=== PATIENT | female | born 1945 | race Caucasian/White ===

== ENCOUNTER → 2016-12-23 | Outpatient (CLI) | payer MEDICARE, BC ==
--- NOTE | 2016-12-23 09:00 | REPMRS ---
Patient History The patient states she had a clinical breast exam in August 2016. Patient is postmenopausal, has history of cancer in the left breast at age 50, and had previous chemotherapy at age 50. No known family history of cancer. Malignant mastectomy of the left breast, 1995. Chemotherapy, 1995. Digital Mammo Screening Bilat: December 23, 2016 - Exam #: [id number] Bilateral CC and MLO view(s) were taken. Technologist: Natacha Guzman Technologist Prior study comparison: December 23, 2015, right breast digital mammo diagnostic unilateral performed at [facility]. December 16, 2014, right breast digital mammo diagnostic unilateral performed at [facility]. December 13, 2013, bilateral digital mammo screening bilat performed at [facility]. FINDINGS: There are scattered fibroglandular densities. There has been no change in the appearance of the right breast parenchyma in the interval since the prior examination. No mass, architectural distortion, or microcalcific cluster has developed. No suspicious finding. ASSESSMENT: BI-RADS/ACR category 2 mammogram. Benign finding(s). Recommendation Routine screening mammogram in 1 year. This mammogram was interpreted with the aid of an FDA-approved computer-aided dectection system. Electronically Signed By: Filipe Alvarez MD 12/23/16 [id number]
== END ==
LOC: M RAD 07:37
PROVIDERS: ATTEND Family Medicine
DX: Z12.31 Encounter for screening mammogram for malignant neoplasm of breast (principal)

== ENCOUNTER → 2017-12-26 | Outpatient (CLI) | payer MEDICARE, BC | LOC: M RAD 07:40 | DX: Z12.31 Encounter for screening mammogram for malignant neoplasm of breast (principal); Z85.3 Personal history of malignant neoplasm of breast | CPT/HCPCS: 77065 ==